=== PATIENT | male | born 1985 | race African-American/Black ===

== ENCOUNTER → 2017-12-08 | Day surgery (SDC) | payer BC, OTHER ==
[~2017-12-08] MED LIST: ADDERALL 30 MG30 MG PO; FENTANYL CITRATE/PF 100MCG/2 ML INJ ONE; HYOSCYAMINE SULFATE 0.5 MG/ML AMP ONE; LIDOCAINE HCL 2% LOCAL INJ 5 ML SDV VIAL INJ ONE; MIDAZOLAM HCL 2 MG/2 ML VIAL ONE; PANTOPRAZOLE SO40 MG PO; PROPOFOL IV EMULSION 10 MG/ML 50 ML VIAL ONE
[2017-12-08 15:10] VITALS: BP 136/89
--- NOTE | 2017-12-08 15:37 | Operative Report ---
DATE OF PROCEDURE: December 08, 2017 REFERRING PHYSICIAN: Ar Leiva MD. PROCEDURES PERFORMED: Esophagogastroduodenoscopy with biopsies and a colonoscopy with polypectomy and biopsies. INDICATIONS FOR ESOPHAGOGASTRODUODENOSCOPY: Dysphagia. INDICATIONS FOR COLONOSCOPY: Lower abdominal pain. MEDICATION: Patient was done under MAC. Please see anesthesiologist's note. PROCEDURE: With patient in the left lateral decubitus position, flexible fiberoptic Olympus gastroscope was introduced into the esophagus under direct visualization without any difficulty. There was some patchy erythema noted in the distal esophagus. A mild stricture was noted at the GE junction and that was dilated to size 52-Malay Collins. The scope was then advanced with ease into the stomach and mucosa overlying the antrum and the body revealed some patchy erythema and low-grade to moderate edema and biopsies were obtained sent to stain for H. pylori. There was a minute ulcer noted at the incisura and that was biopsied. An approximately 6-mm submucosal nodule in the prepyloric area and that was biopsied. Pylorus was then intubated with ease and the scope was advanced all the way to the 2nd portion of the duodenum. The scope was then withdrawn slowly. Mucosa overlying the proximal 2nd portion and the duodenal bulb appeared to be within normal limits. The scope was then withdrawn back into the stomach and retroflexed, and mucosa overlying the fundus and the cardia appeared to be within normal limits. The scope was then straightened out. The stomach was decompressed. Scope was subsequently withdrawn. Patient tolerated the procedure well. IMPRESSIONS 1. Distal esophagitis. 2. Esophageal stricture at gastroesophageal junction, dilated to size 52-Malay Collins. 3. Gastritis, biopsied. Biopsies sent to stain for Helicobacter pylori. 4. Gastric ulcer, incisura, biopsied. 5. Submucosal nodule, prepyloric area, biopsied. PLAN: Follow up histology. Continue Protonix 40 mg 1 p.o. q.a.m. a.c. Patient was then turned around. After adequate lubrication of the anal canal, a flexible fiberoptic Olympus colonoscope was inserted into the rectum with ease and advanced all the way to the cecum. Mucosa overlying the cecum appeared to be within normal limits. The ileocecal valve was intubated and the scope was advanced into the terminal ileum. Minute aphthous ulcers were noted in the terminal ileum and biopsies were obtained. The scope was then withdrawn back into the colon. It was then withdrawn slowly. Mucosa overlying the cecum, ascending and transverse as well as the descending appeared to be within normal limits. The mucosa overlying the sigmoid colon revealed some patchy areas of erythema and low-grade to moderate edema, and biopsies were obtained. A minute polyp was hot biopsied from the sigmoid colon. The rectum appeared to be within normal limits. The scope was then retroflexed into the distal rectum and small internal hemorrhoids were noted, none of which was actively bleeding. The scope was then straightened out, was subsequently withdrawn. Patient tolerated procedure well. IMPRESSIONS 1. Sigmoid colon polyp, hot biopsied. 2. Mild segmental sigmoiditis or mild segmental colitis, sigmoid colon biopsied. 3. Minute polyp, sigmoid colon, hot biopsied. 4. Internal hemorrhoids, none actively bleeding. PLAN: Follow up histology. Initiate VSL #3 one p.o. daily and initiate high-fiber, low-fat diet, and high-fiber supplement. Job#: [id number] TA cc:AR LEIVA MD
== END | disposition home or self-care (01) ==
LOC: OR 09:40
PROVIDERS: ATTEND Internal Medicine Gastroenterology
DX: K63.3 Ulcer of intestine (principal); K63.5 Polyp of colon; K29.50 Unspecified chronic gastritis without bleeding; K22.2 Esophageal obstruction; K25.9 Gastric ulcer, unspecified as acute or chronic, without hemorrhage or perforation; B96.81 Helicobacter pylori [H. pylori] as the cause of diseases classified elsewhere; K20.9 Esophagitis, unspecified; K63.89 Other specified diseases of intestine; K59.00 Constipation, unspecified; K31.89 Other diseases of stomach and duodenum; K64.8 Other hemorrhoids; I10 Essential (primary) hypertension; G47.33 Obstructive sleep apnea (adult) (pediatric); F98.8 Other specified behavioral and emotional disorders with onset usually occurring in childhood and adolescence; Z88.1 Allergy status to other antibiotic agents; Z68.29 Body mass index [BMI] 29.0-29.9, adult
CPT/HCPCS: 43239; 43450; 45380; 45384; J1980; J2001; J2250; 45378